=== PATIENT | female | born 2000 | race Caucasian/White ===

== ENCOUNTER 2024-07-31 21:59 | Emergency (ER) | payer OTHER, SELFPAY ==
[2024-07-31 22:07] VITALS: BP 127/89; PULSE 121; TEMP 36.8; O2SAT 97; BMI 32.9
[2024-07-31 22:16] VITALS: O2SAT 97
[2024-07-31 22:53] VITALS: PULSE 103; O2SAT 97
[2024-07-31] MEDS: IPRATROPIUM/ALBUTEROL SULFATE 3 ML AMPUL.NEB IH ×2 (22:53→23:42)
--- NOTE | 2024-07-31 23:21 | ED.SOB1 ---
HPI - SOB/Dyspnea General Chief Complaint: Shortness of Breath/Dyspnea Stated Complaint: DIFF BREATHING Time Seen by Provider: 07/31/24 22:20 History of Present Illness HPI Narrative: This 23-year-old female, non-smoker, presents for evaluation of an upper respiratory infection with runny nose, cough and chest congestion with wheezing. She does have a history of asthma. She is visiting locally from [place] and does not have her nebulizer machine with her. She does have an albuterol inhaler with her. She has not having any fever or chest pain. She requested DuoNeb treatment. She is status post tummy tuck and abdominal wall reconstruction. She denies any nausea or vomiting. She has no lower extremity pain or swelling. She is visiting her mother and her daughter who live locally in [place]. Related Data Allergies Allergy/AdvReac Type Severity Reaction Status Date / Time No Known Drug Allergies Allergy Verified 07/31/24 22:11 Review of Systems ROS Status of ROS 10 or more systems reviewed and unremarkable except as noted in history and below Exam Narrative Exam Narrative: Vital signs and Nursing Notes reviewed: Patient is afebrile, she is mildly tachycardic with a pulse of 103, she is not hypoxic with pulse ox 97% on room air General: Awake, alert, oriented, nontoxic female with audible nasal congestion, blowing her nose, occasional dry cough noted HEENT: Normocephalic atraumatic, mucous membranes are moist and pink, eyes are clear, clear rhinorrhea noted Chest: Occasional expiratory wheezing greatest in the posterior upper lung dickinson with no accessory muscle use, patient is speaking in complete sentences, no rhonchi or rales appreciated CVS: Regular rate and rhythm S1-S2, no murmurs rubs or gallops, pulses are brisk and equal bilaterally ABD: Exam deferred, patient is status postsurgery and has an abdominal binder in place that she does not wish to remove Extremities: Moving all extremities, no lower extremity tenderness or swelling noted, negative Homans' sign, pulses are brisk and equal bilaterally Skin: Normal in appearance without rash,pallor, petechiae or purpura Neuro: No focal deficits Constitutional Vital Signs, click to edit/add: Last Vital Signs Temp 98.3 F 07/31/24 22:07 Pulse 99 H 08/01/24 00:21 Resp 18 08/01/24 00:21 BP 152/88 H 11/08/24 00:21 Pulse Ox 100 08/01/24 00:21 O2 Del Method Room Air 08/01/24 00:21 Course Vital Signs Vital signs: Vital Signs Temperature 98.3 F 07/31/24 22:07 Pulse Rate 121 H 07/31/24 22:07 Respiratory Rate 18 07/31/24 22:07 Blood Pressure 127/89 07/31/24 22:07 Pulse Oximetry 97 07/31/24 22:07 Oxygen Delivery Method Room Air 07/31/24 22:07 Temperature 98.3 F 07/31/24 22:07 Pulse Rate 99 H 08/01/24 00:21 Respiratory Rate 18 08/01/24 00:21 Blood Pressure 152/88 H 08/01/24 00:21 Pulse Oximetry 100 08/01/24 00:21 Oxygen Delivery Method Room Air 08/01/24 00:21 MDM - SOB/Dyspnea MDM Narrative Medical decision making narrative: This 23-year-old female with a history of asthma presents for evaluation of cough, wheezing and mild shortness of breath. The patient is visiting her mother and child from [place]. She recently had abdominal surgery in [place] and is wearing a binder. The patient states she typically does not have problems with her asthma but since coming to [place] she has developed an upper respiratory tract infection with nasal congestion and cough. The patient declined any testing or x-ray stating that she does not know if her health insurance from out of state will cover her treatment in an [place] emergency department. She requested a DuoNeb treatment. She does have audible nasal congestion and clear rhinorrhea. She has some mild expiratory wheezing with no respiratory distress. Her vital signs were stable and she is not hypoxic. She was given a DuoNeb treatment and reevaluated. She still had some persistent wheezing. After approximately 30 minutes she was given an additional albuterol nebulizer treatment with clinical improvement. She states she has a mild headache and request something for her headache prior to being discharged. She was given a dose of Tylenol. She declined any radiographic or laboratory studies including COVID or influenza. She states that her child and sister have similar symptoms consistent with a viral illness. Discharge Plan Discharge Chief Complaint: Shortness of Breath/Dyspnea Clinical Impression: Upper respiratory infection, viral, Wheezing Patient Disposition: Home, Self-Care Time of Disposition Decision: 00:06 Condition: Good Print Language: [place] Instructions: Upper Respiratory Infection (ED), Wheezing (ED) Referrals: Physician,Non-Staff, MD [Primary Care Provider] - 1 week Discharge Date/Time: 08/01/24 00:21
[2024-07-31 23:43] VITALS: PULSE 96; O2SAT 100
[2024-08-01] MEDS: ACETAMINOPHEN 325 MG TABLET 650 MG PO (00:18)
[2024-08-01 00:21] VITALS: BP 152/88; PULSE 99; O2SAT 100
== END 2024-08-01 00:21 | disposition home or self-care (01) ==
PROVIDERS: Emergency Provider Emergency Medicine
DX: J06.9 Acute upper respiratory infection, unspecified (principal); R06.2 Wheezing
CPT/HCPCS: 94640; 99283